=== PATIENT | female | born 1955 | race Caucasian/White ===

== ENCOUNTER 2020-01-13 06:31 | Inpatient (IN) ==
--- NOTE | 2019-12-01 21:04 | PAT Medication Instructions ---
Medication Instructions Date of Service December 01, 2019 Home Medications ascorbic acid (vitamin C) [Vitamin C] 1,000 mg PO DAILY calcium carbonate [Calcium 500] 1,000 mg PO DAILY cholecalciferol (vitamin D3) [Vitamin D3] 125 mcg PO DAILY cranberry 450 mg PO DAILY famotidine 20 mg PO QPM garlic 1,000 mg PO DAILY glucosamine EVb-uua-aydnzcbpow 2 tab PO DAILY latanoprost 1 drp OPB HS melatonin 10 mg PO HS multivitamin 1 tab PO DAILY omeprazole 40 mg PO QAM pramipexole 0.25 mg PO TID sodium chloride [Gladys 128] 1 applic OPB HS sodium chloride [Gladys 128] 1 drp OPB BID STOP taking 2 weeks before surgery (or as soon as possible if surgery is within 2 weeks) cranberry 450 mg PO DAILY garlic 1,000 mg PO DAILY glucosamine FVj-pss-bkhnmmguyy 2 tab PO DAILY STOP taking 24 hours before surgery pramipexole 0.25 mg PO TID DO NOT take the morning of surgery ascorbic acid (vitamin C) [Vitamin C] 1,000 mg PO DAILY calcium carbonate [Calcium 500] 1,000 mg PO DAILY cholecalciferol (vitamin D3) [Vitamin D3] 125 mcg PO DAILY multivitamin 1 tab PO DAILY Take morning of surgery With a small sip of water, OTHERWISE NOTHING TO EAT OR DRINK AFTER MIDNIGHT: omeprazole 40 mg PO QAM sodium chloride [Gladys 128] 1 drp OPB BID Take evening before surgery famotidine 20 mg PO QPM latanoprost 1 drp OPB HS melatonin 10 mg PO HS sodium chloride [Gladys 128] 1 applic OPB HS sodium chloride [Gladys 128] 1 drp OPB BID Other Notes If you have any questions please call us at [phone] or [phone] or [phone] or [phone]
--- NOTE | 2019-12-02 13:20 | Anesthesiology Consultation ---
Date of Service December 02, 2019 Assessment & Plan (1) Encounter for pre-operative examination: - Awaiting review of preop testing (T&S). - Awaiting preop labs (being done at [facility]). Per [facility] assessment on 12/01: Travel screen- Patient lives in [facility] (has only left home for essential shopping, wears mask, uses social distancing). No known COVID-19 positive contacts. No history of COVID-19 testing. No current COVID-19 related symptoms. Chart Review Chart Review: Patient seen in Pre Admission Testing Teaching & Discussion Pre-Anesthesia Teaching/Discussion Notes: Instructed NPO after midnight before surgery,except medications with 15 cc of water. Medication instructions provided according to the [facility] guidelines. History Surgery Operation Date: 01/07/20 07:45 Proposed Procedures p L1-L5 Decompression and Fusion, Spinal Cord Monitoring - Flako Presley DO Height/Weight Height: 5 ft Weight: 74.2 kg Allergies Allergy/AdvReac Type Severity Reaction Status Date / Time gabapentin AdvReac Intermediate VERTIGO, Verified 12/02/19 13:22 DYSPEPSIA cephalexin AdvReac nausea, Verified 12/02/19 14:04 vomiting (when taken with hydrocodone/APAP) hydrocodone/APAP AdvReac nausea, Uncoded 12/02/19 14:04 vomiting (when taken with cephalexin) Medications Home Medications Medication Instructions Recorded Confirmed Last Taken ascorbic acid (vitamin C) [Vitamin 1,000 mg PO DAILY 12/01/19 12/01/19 Unknown C] calcium carbonate [Calcium 500] 1,000 mg PO DAILY 12/01/19 12/01/19 Unknown cholecalciferol (vitamin D3) 125 mcg PO DAILY 12/01/19 12/01/19 Unknown [Vitamin D3] cranberry 450 mg PO DAILY 12/01/19 12/01/19 Unknown famotidine 20 mg PO QPM 12/01/19 12/01/19 Unknown garlic 1,000 mg PO DAILY 12/01/19 12/01/19 Unknown glucosamine BYq-bds-emyhxxwofe 2 tab PO DAILY 12/01/19 12/01/19 Unknown latanoprost 1 drp OPB HS 12/01/19 12/01/19 Unknown melatonin 10 mg PO 12/01/19 12/01/19 Unknown multivitamin 1 tab PO DAILY 12/01/19 12/01/19 Unknown omeprazole 40 mg PO QAM 12/01/19 12/01/19 Unknown pramipexole 0.25 mg PO TID 12/01/19 12/01/19 Unknown sodium chloride [Gladys 128] 1 applic OPB HS 12/01/19 12/01/19 Unknown sodium chloride [Gladys 128] 1 drp OPB BID 12/01/19 12/01/19 Unknown Past Medical History Medical History Degenerative disc disease GERD (gastroesophageal reflux disease) controlled History of recurrent UTIs Increased pressure in the eye Osteoarthritis Restless leg syndrome Scoliosis Spinal stenosis Exercise / Class Metabolic Activity II 4-5 Yardwork/Stairs/Walk up hill Past Family History Family History Mother Family history of diabetes mellitus Past Surgical History Surgical History H/O bilateral oophorectomy History of bilateral tubal ligation History of carpal tunnel release RT History of cataract surgery RT/LEFT History of cholecystectomy History of colonoscopy History of hysterectomy History of tonsillectomy History of tooth extraction History of total knee replacement LEFT Past Anesthesia History No Hx of Anesthesia Complications and No Family Hx of Anesthesia Complications History of PONV No Hx of PONV and Hx of Motion Sickness Social History Smoking Status: Never smoker Do You Dip or Chew Tobacco: No Hx Alcohol Use: Yes alcohol intake frequency: holidays/special occasions only Hx Substance Use: No substance use type: does not use Review of Systems Patient denies chest pain, shortness of breath, dyspnea on exertion, fever, chills, cough, wheezing, palpitations. Physical Exam Vital Signs VITALS BP 133/79 P 77 TEMP 98.9 SP02 98%RA RESP 18 PHYSICAL Full neck and c-spine range of motion. Full TMJ range of motion. TMD 3.5 finger breaths Mallampati Score 3 Dentition: intact, artificial teeth attached with crown/bridge-like on upper front/sides Lungs: clear throughout to auscultation Cardiac: regular rate and rhythm, no murmurs noted Spine: normal Carotid arteries: negative bruit Extremities: no edema Testing Electrocardiogram Date: 12/02/19 NSR at 78bpm. unconfirmed report* Chest X-Ray Date: 12/02/19 Findings: + NAD
--- NOTE | 2019-12-02 14:39 | XRay Report ---
XR chest Pre-admission PA/Lat CLINICAL HISTORY: Preoperative chest COMPARISON STUDY: June 2013 FINDINGS: The cardiac and mediastinal contours are normal. There is no evidence of focal pulmonary co nsolidation. There is no evidence of failure. No pleural effusions are visualized.[ IMPRESSION: No active disease in the chest. ACT 112: Negative or not required by law. Electronically signed by: Ward Grant M.D. 12/02/2019 2:38 PM
--- NOTE | 2019-12-03 06:38 | Electrocardiogram Report ---
Test Reason : Blood Pressure : / mmHG Vent. Rate : 078 BPM Atrial Rate : 078 BPM P-R Int : 194 ms QRS Dur : 084 ms QT Int : 372 ms P-R-T Axes : 078 046 055 degrees QTc Int : 424 ms Normal sinus rhythm Normal ECG When compared with ECG of 23-JUN-2013 13:23, No significant change was found Confirmed by Ang Garcia ([id number]) on 12/03/2019 6:37:52 AM Referred By: Flako Presley Confirmed By:Ang Garcia
[~2020-01-13 06:31] MED LIST: ACETAMINOPHEN 500 MG TAB PO SCH; CEFAZOLIN 1000MG 1,000 MG/7.5 ML SYR IV SCH; CeleBREX 200 MG CAP PO SCH; GABAPENTIN 300 MG CAP PO SCH; GABAPENTIN 600 MG DOSE PO SCH; LR 15ML/HR IV SCH
[2020-01-13 07:11] LABS: Appearance Urine Clear (Clear); Bilirubin Urine Negative (Negative); Blood Urine Negative (Negative); Color Urine Yellow; Glucose Urine UA Negative (Negative); Ketones Urine Negative (Negative); Leukocyte Esterase Urine Negative (Negative); Nitrite Urine Negative (Negative); Protein Urine Negative (Negative); Specific Gravity Urine 1.012 (1.000-1.030); Urobilinogen Urine Negative (Negative); pH Urine 7.5 (4.5-7.5)
[2020-01-13] MEDS ORDERED: PROPOFOL IV EMULSION 10 MG/ML 20 ML VIAL IV ONE (08:30)
[2020-01-13] MEDS ORDERED: LIDOCAINE HCL 2% 2 ML VIAL/AMP(20MG/ML) INFIL ONE (08:30)
[2020-01-13] MEDS ORDERED: ROCURONIUM BROMIDE 10 MG/ML 5 ML VIAL IV ONE (08:30)
[2020-01-13] MEDS ORDERED: MIDAZOLAM HCL 1 MG/ML 2ML VIAL ONE (08:31)
[2020-01-13] MEDS ORDERED: fentaNYL citrate 100 MCG/2 ML VIAL ONE (08:31)
--- NOTE | 2020-01-13 09:32 | History & Physical Bridge Note ---
Date of Service January 13, 2020 History & Physical Bridge Note I have examined the patient, reviewed the History & Physical and in the interval since the performance of the History & Physical I have noted the following changes of clinical significance: no changes noted
--- NOTE | 2020-01-13 09:33 | History & Physical Report ---
Date of Service January 13, 2020 Assessment & Plan (1) Neurogenic claudication due to lumbar spinal stenosis: L1-L5 decompression fusion Present on Admission?: Yes History of Present Illness Chief Complaint: Back and bilateral leg pain Primary Care Provider: Chitra Mcgee This is a 64-year-old female who presents with chronic persistent back and bilateral leg pain. After failing extensive course of nonoperative care is here for surgical invention. Allergies Allergy/AdvReac Type Severity Reaction Status Date / Time gabapentin AdvReac Intermediate VERTIGO, Verified 01/13/20 06:54 DYSPEPSIA cephalexin AdvReac nausea, Verified 01/13/20 06:54 vomiting (when taken with hydrocodone/APAP) hydrocodone/APAP AdvReac nausea, Uncoded 12/02/19 14:04 vomiting (when taken with cephalexin) Home Medications Home Medications Medication Instructions Recorded Confirmed Type ascorbic acid (vitamin C) [Vitamin 1,000 mg PO DAILY 12/01/19 01/13/20 History C] calcium carbonate [Calcium 500] 1,000 mg PO DAILY 12/01/19 01/13/20 History cholecalciferol (vitamin D3) 125 mcg PO DAILY 12/01/19 01/13/20 History [Vitamin D3] cranberry 450 mg PO DAILY 12/01/19 01/13/20 History famotidine 20 mg PO QPM 12/01/19 01/13/20 History garlic 1,000 mg PO DAILY 12/01/19 01/13/20 History glucosamine WBe-vti-vwoyysmpcz 2 tab PO DAILY 12/01/19 01/13/20 History latanoprost 1 drp OPB HS 12/01/19 01/13/20 History melatonin 10 mg PO HS 12/01/19 01/13/20 History multivitamin 1 tab PO DAILY 12/01/19 01/13/20 History omeprazole 40 mg PO QAM 12/01/19 01/13/20 History pramipexole 0.25 mg PO TID 12/01/19 01/13/20 History sodium chloride [Gladys 128] 1 applic OPB HS 12/01/19 01/13/20 History sodium chloride [Gladys 128] 1 drp OPB BID 12/01/19 01/13/20 History diphenhydramine-acetaminophen 2 tab PO HS PRN 01/13/20 01/13/20 History [Tylenol PM Extra Strength] Past Med/Surg History Medical History Degenerative disc disease GERD (gastroesophageal reflux disease) controlled History of recurrent UTIs Increased pressure in the eye Osteoarthritis Restless leg syndrome Scoliosis Spinal stenosis Surgical History H/O bilateral oophorectomy History of bilateral tubal ligation History of carpal tunnel release RT History of cataract surgery RT/LEFT History of cholecystectomy History of colonoscopy History of hysterectomy History of tonsillectomy History of tooth extraction History of total knee replacement LEFT Family History Mother Family history of diabetes mellitus Social History Preferred Language: Latvian Ux Researcher Required: No Beliefs That Will Affect Care: None Current Living Situation: Spouse Feels Safe at Home: Yes Safety Concerns: Feels Safe At This Time Smoking Status: Never smoker Do You Dip or Chew Tobacco: No ; Second Hand Exposure: No ; Tobacco Cessation Education Requested by Patient: No Hx Alcohol Use: Yes Hx Substance Use: No Physical Exam Physical Exam: Patient is alert and oriented neurologically intact. Heart regular rate and rhythm. Lungs clear to auscultation. Results & Data Vital Signs (Past 12 Hours) Vital Signs Temp Pulse Resp BP Pulse Ox 01/13/20 06:58 36.7 C 94 H 18 152/83 H 98
[2020-01-13] MEDS ORDERED: ATROPINE SULFATE 0.1 MG/ML 10ML SYR IV PRN (09:45)
[2020-01-13] MEDS ORDERED: ONDANSETRON INJ 2 MG/ML 2 ML VIAL IV PRN ×3 (09:45→14:43)
[2020-01-13] MEDS ORDERED: HYDROmorphone INJ 2 MG/ML SYR/VIAL IV PRN (09:45)
[2020-01-13] MEDS ORDERED: PROMETHAZINE HCL 12.5 MG in SODIUM CHLORIDE 0.9% 50 ML IV PRN ×3 (09:45→14:43)
[2020-01-13] MEDS ORDERED: ePHEDrine sulfate 50 MG/ML AMP IV PRN (09:45)
[2020-01-13] MEDS ORDERED: fentaNYL citrate 100 MCG/2 ML VIAL IV PRN (09:45)
[2020-01-13] MEDS ORDERED: BACITRACIN INJ 50,000 UNIT VIAL ONE (09:54)
[2020-01-13] MEDS ORDERED: BUPIVACAINE/EPINEPHRINE 0.25% 1:200,000 30 ML VIAL ONE (09:54)
[2020-01-13] MEDS ORDERED: GLYCOPYRROLATE 0.2 MG/ML VIAL ONE (11:08)
[2020-01-13] MEDS ORDERED: ONDANSETRON INJ 2 MG/ML 2 ML VIAL ONE (11:08)
[2020-01-13] MEDS ORDERED: DEXAMETHASONE SOD INJ 4 MG/ML VIAL ONE (11:08)
[2020-01-13] MEDS ORDERED: NEOSTIGMINE METHYLSULFATE 1 MG/ML 10ML VIAL ONE (11:08)
[2020-01-13] MEDS ORDERED: ePHEDrine sulfate 50 MG/ML SYR ONE (11:10)
[2020-01-13] MEDS ORDERED: FLOSEAL HEMOSTATIC MATRIX 10ML TOP ONE (12:49)
--- NOTE | 2020-01-13 12:55 | Operative Report ---
Post Operative Report Pre & Post Diagnosis Operation Date: 01/13/20 09:35 Pre-Op Diagnosis: Lumbar Spinal Stenosis with Neurogenic Claudication Post-Op Diagnosis: Lumbar Spinal Stenosis with Neurogenic Claudication I identified the patient and participated in the time-out.: Yes Procedure Operation Date: 01/13/20 09:35 Actual Procedures #1 lumbar decompression with bilateral medial facetectomies and foraminotomies L1-2, L2-3, L3-4 and L4-5. #2 posterior spinal fusion L1-L5. #3 placement posterior segmental instrumentation L1-L5. #4 interbody fusion L4-5. #5 placement peek cage 11 x 22 mm at L4-5. #6 placement of locally harvested morselized autograft in the posterior lateral gutters. #7 placement infuse collagen sponge, master graft in the posterior lateral gutters and ostial amp interbody space. Surgeon Flako Presley DO Activity Aid Nellie Weiner Estimated Blood Loss 150 Findings Consistent with Post-Op Diagnosis Specimens None Indications This is a 64-year-old female who presents with above-mentioned diagnosis after failing a course of nonoperative care is here for surgical invention. Description of Procedure The patient was met with identified informed consent obtained. Patient was then taken to the operative suite underwent intubation placed in a prone position on the Dwain table on top of the Raúl frame. All bony prominences well-padded eyes inspected to ensure no external pressure placed upon up at this point the lumbar spine was prepped and draped in normal sterile fashion. Sharp dissection with the assistance of Bovie cautery was performed down to and exposing the lamina and transverse processes of L1-L2 L3-L4-L5 bilaterally with assistance of fluoroscopy. From a caudal to cephalad fashion complete laminectomy of L4 L3 L2 L1 was performed including bilateral medial facetectomies and foraminotomies addressing severe spinal stenosis. Pedicle screws were then placed in L1-L2 L3-L4-L5 bilaterally with assistance of fluoroscopy and the appropriately sized jones placed. Believe a transforaminal approach and left complete discectomy of L4-5 was performed endplates curetted to subcortical bleeding bone and a 11 x 22 mm peek cage with osteo-bone graft tapped in position. The rods were then locked in final position bilaterally. The transverse processes of L2 L3-L4-L5 were then burred to subcortical bleeding bone. Infuse collagen sponge master graft local autograft was placed in the posterior lateral gutters. 15 round HUGO drain inserted. Incision was then closed with 1 Vicryl in the fascia 2-0 Vicryl subcutaneously and 4 Monocryl for final skin closure. Steri-Strip sterile dressings placed. Patient waken taken to PACU stable condition. Please note spinal cord monitoring was utilized that the procedure no changes noted. Lastly Nellie Weiner was present at the entire procedure involved the patient positioning complex portions of the surgery and final skin closure. I attest to the content of the Intraoperative Record and any orders documented therein. Any exceptions are noted below.
[2020-01-13] MEDS ORDERED: LORazepam 0.5 MG TAB PO PRN ×2 (12:59→14:43)
[2020-01-13] MEDS ORDERED: METOCLOPRAMIDE HCL INJ 5 MG/ML 2 ML VIAL IV PRN ×2 (12:59→14:43)
[2020-01-13] MEDS ORDERED: DO NOT ADMINISTER PNEUMOCOCCAL VACCINE PRN ×2 (12:59→14:43)
[2020-01-13] MEDS ORDERED: MAGNESIUM HYDROXIDE SUSP 30 ML UDC PO PRN ×2 (12:59→14:43)
[2020-01-13] MEDS ORDERED: bisacodyL 10 MG SUPP PR PRN ×2 (12:59→14:43)
[2020-01-13] MEDS ORDERED: LORazepam 0.5 MG/1 ML VIAL IV PRN ×2 (12:59→14:43)
[2020-01-13] MEDS ORDERED: DO NOT ADMINISTER FLU VACCINE PRN ×2 (12:59→14:43)
[2020-01-13] MEDS ORDERED: FAMOTIDINE 20 MG TAB PO PRN ×2 (12:59→14:43)
[2020-01-13] MEDS ORDERED: ONDANSETRON 4 MG OD TAB PO PRN ×2 (12:59→14:43)
[2020-01-13] MEDS ORDERED: ALUMINUM/MAGNESIUM SUSP 30 ML UDC PO PRN ×2 (12:59→14:43)
[2020-01-13] MEDS ORDERED: NALOXONE HCL 0.4 MG/1 ML VIAL/CARP IV PRN ×2 (12:59→14:43)
[2020-01-13] MEDS ORDERED: SOD PHOSPHATE/SOD BIPHOSPHATE ENEMA 132 ML BTL PR PRN ×2 (12:59→14:43)
--- NOTE | 2020-01-13 13:06 | Fluoroscopy Report ---
INTRAOPERATIVE RADIOGRAPHS CLINICAL HISTORY: L1-L5 spinal fusion. Fluoroscopy time: 29 seconds. FINDINGS: 3 spot fluoroscopic views of the lumbar spine are presented. There has been discectomy at L 3-L4 with laminectomy and posterior fusion from L1-L5 . Interpedicular screws are present at all leve ls. The Orthopedic hardware appears intact. IMPRESSION: Intraoperative images from L1-L5 spinal fusion as above. Electronically signed by: Dionicio Mccoy M.D. 01/13/2020 1:05 PM
--- NOTE | 2020-01-13 14:25 | Anesthesiology Progress Note ---
Date of Service January 13, 2020 Anesthesia Post Procedure Vital Signs Vital Signs: Temp Pulse Pulse Resp BP BP Pulse Ox 01/13/20 14:10 36.3 C L 95 H 12 135/64 99 01/13/20 14:00 96 H 12 139/63 98 01/13/20 13:50 93 H 12 148/66 H 95 01/13/20 13:43 36.1 C L 100 H 12 135/86 99 01/13/20 06:58 36.7 C 94 H 18 152/83 H 98 Pain Intensity Left Leg: Pain Intensity: 2 Transfer of Care Handoff Completed per policy Notes Mental Status: alert / awake / arousable and participated in evaluation Patient Amnestic to Procedure: Yes Nausea / Vomiting: adequately controlled Pain: adequately controlled Airway Patency, RR, SpO2: stable & adequate BP & HR: stable & adequate Hydration State: stable & adequate Anesthetic Complications: no major complications apparent and Pt Satisfied with anesthetic care
[2020-01-13] MEDS ORDERED: ACETAMINOPHEN 500 MG TAB PO PRN ×2 (14:43→15:04)
[2020-01-13] MEDS ORDERED: ACETAMINOPHEN 1,000 MG/100 ML VIAL IV PRN (14:43)
[2020-01-13] MEDS ORDERED: HYDROmorphone INJ 0.5 MG/0.5 ML SYR IV PRN (14:43)
[2020-01-13] MEDS ORDERED: HYDROmorphone INJ 1 MG/ML SYRINGE IV PRN (14:43)
[2020-01-13] MEDS: LACTATED RINGER'S 1,000 ML IV SCH (15:11)
[2020-01-13] MEDS: PRAMIPEXOLE DIHYDROCHLO 0.25 MG TAB PO SCH ×2 (15:51→20:14)
[2020-01-13] MEDS: CLINDAMYCIN 600 MG in DEXTROSE 5% 50 ML IV SCH (17:34)
--- NOTE | 2020-01-13 17:58 | Internal Medicine Consult Note ---
Date of Consultation January 13, 2020 Assessment & Plan (1) Neurogenic claudication due to lumbar spinal stenosis: POD # 0. (2) GERD (gastroesophageal reflux disease): Continue Protonix and Pepcid. (3) Restless leg syndrome: Continue Mirapex. (4) History of recurrent UTIs: Last UTI 1-2 months ago. No current symptoms. UA negative. Remove Garcia as soon as possible. (5) DVT prophylaxis: Per [facility] protocol. (6) Encounter for consultation: Thank you for this consultation. We will follow the patient with you during their hospital stay. My cell # is [phone]. You can reach a member of the [facility] Medicine Team 27/01 via pager @ [phone]. History of Present Illness Reason for Consultation: medical management Requesting Physician: Dr. Presley Attending Physician: Flako Presley DO History of Present Illness 64 YO female followed by Dr. Mcgee. History of GERD, restless legs, and other problems noted below. Underwent lumbar decompression / fusion today. Doing well postoperatively. No chest pain, cough, SOB, nausea, vomiting. Has Garcia cath postop. Pain well-controlled. Allergies Allergy/AdvReac Type Severity Reaction Status Date / Time gabapentin AdvReac Intermediate VERTIGO, Verified 01/13/20 06:54 DYSPEPSIA cephalexin AdvReac nausea, Verified 01/13/20 06:54 vomiting (when taken with hydrocodone/APAP) hydrocodone/APAP AdvReac nausea, Uncoded 12/02/19 14:04 vomiting (when taken with cephalexin) Home Medications Home Medications Medication Instructions Recorded Confirmed Type ascorbic acid (vitamin C) [Vitamin 1,000 mg PO DAILY 12/01/19 01/13/20 History C] calcium carbonate [Calcium 500] 1,000 mg PO DAILY 12/01/19 01/13/20 History cholecalciferol (vitamin D3) 125 mcg PO DAILY 12/01/19 01/13/20 History [Vitamin D3] cranberry 450 mg PO DAILY 12/01/19 01/13/20 History famotidine 20 mg PO QPM 12/01/19 01/13/20 History garlic 1,000 mg PO DAILY 12/01/19 01/13/20 History glucosamine WOr-hri-kvqukpkbks 2 tab PO DAILY 12/01/19 01/13/20 History latanoprost 1 drp OPB HS 12/01/19 01/13/20 History melatonin 10 mg PO HS 12/01/19 01/13/20 History multivitamin 1 tab PO DAILY 12/01/19 01/13/20 History omeprazole 40 mg PO QAM 12/01/19 01/13/20 History pramipexole 0.25 mg PO TID 12/01/19 01/13/20 History sodium chloride [Gladys 128] 1 applic OPB HS 12/01/19 01/13/20 History sodium chloride [Gladys 128] 1 drp OPB BID 12/01/19 01/13/20 History diphenhydramine-acetaminophen 2 tab PO HS PRN 01/13/20 01/13/20 History [Tylenol PM Extra Strength] Patient History Medical History Degenerative disc disease GERD (gastroesophageal reflux disease) controlled History of recurrent UTIs Increased pressure in the eye Osteoarthritis Restless leg syndrome Scoliosis Spinal stenosis Surgical History H/O bilateral oophorectomy History of bilateral tubal ligation History of carpal tunnel release RT History of cataract surgery RT/LEFT History of cholecystectomy History of colonoscopy History of hysterectomy History of tonsillectomy History of tooth extraction History of total knee replacement LEFT Family History (Updated 01/13/20 @ 17:50 by Goldy Miguel MD) Mother Family history of diabetes mellitus Heart disease Brother Diabetes Social History Preferred Language: Slovenian Senior Staff Psychologist Required: No Beliefs That Will Affect Care: None Current Living Situation: Spouse Feels Safe at Home: Yes Safety Concerns: Feels Safe At This Time Smoking Status: Never smoker Do You Dip or Chew Tobacco: No ; Second Hand Exposure: No ; Tobacco Cessation Education Requested by Patient: No Hx Alcohol Use: Yes Hx Substance Use: No Review of Systems Constitutional: + weight loss (intentional 10 lb wt loss); no fever Respiratory: no cough and no dyspnea Cardiovascular: no chest pain Gastrointestinal: no nausea, no vomiting, no diarrhea/loose stools, no blood in stools and no melena Genitourinary: recurrent UTI's, no recent symptoms Musculoskeletal: + back pain Hematologic / Lymphatic: no easy bleeding and no easy bruising Physical Exam Constitutional: WD/WN, vitals as above no acute distress Eyes: PERRL, conjunctivae normal, anicteric sclerae ENMT: external ear and nose normal, oropharynx normal Neck: trachea midline, no thyromegaly Respiratory: normal respiratory effort, lungs clear to auscultation Cardiovascular: Rate/Rhythm: regular rate Heart Sounds: + murmur (soft sys murmur at base); no gallop and no cardiac rub Vessels: no JVD Extremities: normal capillary refill; no calf tenderness and no edema Gastrointestinal (Abdomen): normal bowel sounds, soft, nontender, no hepatosplenomegaly Musculoskeletal: Head/Neck/Chest: neck supple Extremities: strength 5/5 throughout; no cyanosis and no clubbing TEDS and SCD's applied Skin: no rashes, warm and dry Neurologic: PERRL, EOMI no facial palsy no dysarthria or aphasia Psychiatric: Orientation: alert and oriented x 3 Affect: euthymic affect Genitourinary: + bladder abnormality (Garcia cath) Lymphatic: no cervical lymphadenopathy Results & Data Vital Signs (Past 12 Hours) Vital Signs Temp Pulse Pulse Resp BP BP Pulse Ox 01/13/20 17:32 36.8 C 96 H 16 147/76 H 98 01/13/20 16:32 36.6 C 99 H 16 159/73 H 100 01/13/20 15:39 36.7 C 103 H 16 122/70 100 01/13/20 15:14 36.6 C 84 16 129/72 98 01/13/20 14:35 36.6 C 90 14 139/73 100 01/13/20 14:10 36.3 C L 95 H 12 135/64 99 01/13/20 14:00 96 H 12 139/63 98 01/13/20 13:50 93 H 12 148/66 H 95 01/13/20 13:43 36.1 C L 100 H 12 135/86 99 01/13/20 06:58 36.7 C 94 H 18 152/83 H 98 Laboratory Results Laboratory Results - last 24 hr 01/13/20 01/13/20 06:58 07:26 Urine Color Yellow Urine Appearance Clear Urine pH 7.5 Ur Specific [place] 1.012 Urine Protein Negative Urine Glucose (UA) Negative Urine Ketones Negative Urine Blood Negative Urine Nitrite Negative Urine Bilirubin Negative Urine Urobilinogen Negative Ur Leukocyte Esterase Negative Blood Type A Positive Antibody Screen NEGATIVE Crossmatch See Detail COVID-19 PCR negative 01/03/20 Preop labs 12/05/19: Hgb 12.9, WBC 4700, plts 271,000. Na 142, K 5.2, Cl 103, CO2 23, BUN 14, creat 0.89, glucose 129. Diagnostic Findings Chest x-ray 12/02/19 negative. ECG Additional Comments: EKG performed on 12/02/19 reviewed and demonstrated NSR at 80 / min, no acute changes.
[2020-01-13] MEDS: MELATONIN 3 MG TAB PO SCH (20:13)
[2020-01-13] MEDS: FAMOTIDINE 20 MG TAB PO SCH (20:14)
[2020-01-13] MEDS: DOCUSATE SODIUM/SENNA 50/8.6MG TAB PO SCH (20:14)
[2020-01-13] MEDS: LATANOPROST 0.005% OP SOLN 2.5 ML BTL OPB SCH (20:16)
[2020-01-13] MEDS: SODIUM CHLORIDE 5% OP SOLN 15 ML BTL OPB SCH (20:46)
[2020-01-13] MEDS ORDERED: DOCUSATE SODIUM/SENNA 50/8.6MG TAB PO SCH (21:00)
[2020-01-13] MEDS: SODIUM CHLORIDE 5% (MURO) OP OINT 3.5 GM TUBE OPB SCH (22:11)
[2020-01-14] MEDS: CLINDAMYCIN 600 MG in DEXTROSE 5% 50 ML IV SCH (01:07)
[2020-01-14] MEDS: LACTATED RINGER'S 1,000 ML IV SCH (01:10)
[2020-01-14] MEDS: TRAMADOL HCL 50 MG TABLET PO PRN ×4 (04:19→21:27)
[2020-01-14] MEDS: POLYETHYLENE (MIRALAX) 17 GM PACK PO SCH ×3 (04:20→17:20)
[2020-01-14] MEDS ORDERED: POLYETHYLENE (MIRALAX) 17 GM PACK PO SCH (06:00)
[2020-01-14 06:25] LABS: Basophils # (auto) 0.01 K/uL (0-0.2); Basophils % (auto) 0.1 %; Eosinophils # (auto) 0.01 K/uL (0-0.5); Eosinophils % (auto) 0.1 %; Hematocrit (blood only) 29.4 % (37-47); Hemoglobin 9.9 g/dL (12.0-16.0); Immature Granulocytes # (auto) 0.02 K/uL (0.00-0.02); Immature Granulocytes % (auto) 0.2 %; Lymphocytes # (auto) 1.67 K/uL (1.2-3.4); Lymphocytes % (auto) 17.3 %; Mean Corpuscular Hemoglobin 29.4 pg (25-34); Mean Corpuscular Hgb Conc 33.7 g/dL (32-36); Mean Corpuscular Volume 87.2 fL (80-100); Mean Platelet Volume 9.9 fL (7.4-10.4); Monocytes # (auto) 0.75 K/uL (0.11-0.59); Monocytes % (auto) 7.8 %; Neutrophils # (auto) 7.17 K/uL (1.4-6.5); Neutrophils % (auto) 74.5 %; Platelet Count 244 K/uL (130-400); RDW Coefficient of Variation 13.3 % (11.5-14.5); RDW Standard Deviation 42.9 fL (36.4-46.3); Red Blood Count 3.37 M/uL (4.2-5.4); White Blood Count 9.63 K/uL (4.8-10.8)
[2020-01-14 06:51] LABS: BUN Creatinine Ratio 15.4 (10-20); Calcium 8.3 mg/dl (8.5-10.1); Est GFR (African American) 108.4; Est GFR (Non-African American) 93.5; Potassium 4.2 mmol/L (3.5-5.1)
--- NOTE | 2020-01-14 07:41 | Anesthesiology Progress Note ---
Date of Service January 14, 2020 Anesthesia Post Procedure Vital Signs Vital Signs: Temp Pulse Pulse Resp BP Pulse Ox 01/14/20 04:09 36.7 C 102 H 16 108/63 98 01/13/20 23:42 36.6 C 94 H 20 119/71 96 01/13/20 22:19 97 01/13/20 19:01 36.7 C 94 H 16 136/75 98 01/13/20 17:32 36.8 C 96 H 16 147/76 H 98 01/13/20 16:32 36.6 C 99 H 16 159/73 H 100 01/13/20 15:39 36.7 C 103 H 16 122/70 100 01/13/20 15:14 36.6 C 84 16 129/72 98 01/13/20 14:35 36.6 C 90 14 139/73 100 01/13/20 14:10 36.3 C L 95 H 12 135/64 99 01/13/20 14:00 96 H 12 139/63 98 01/13/20 13:50 93 H 12 148/66 H 95 01/13/20 13:43 36.1 C L 100 H 12 135/86 99 Pain Intensity Left Leg: Pain Intensity: 6 Notes Mental Status: alert / awake / arousable and participated in evaluation Patient Amnestic to Procedure: Yes Nausea / Vomiting: adequately controlled Pain: adequately controlled Airway Patency, RR, SpO2: stable & adequate BP & HR: stable & adequate Hydration State: stable & adequate Anesthetic Complications: no major complications apparent
[2020-01-14] MEDS: SODIUM CHLORIDE 5% OP SOLN 15 ML BTL OPB SCH ×2 (07:56→20:59)
[2020-01-14] MEDS: PANTOprazole 40 MG TAB PO SCH (07:56)
[2020-01-14] MEDS: PRAMIPEXOLE DIHYDROCHLO 0.25 MG TAB PO SCH ×3 (07:57→20:25)
[2020-01-14] MEDS: MULTIVITAMIN TAB PO SCH (07:57)
[2020-01-14] MEDS: ASCORBIC ACID 500 MG TAB PO SCH (07:57)
[2020-01-14] MEDS: OXYCODONE HCL IR 5 MG TAB (IMMEDIATE RELEASE) PO PRN (08:07)
--- NOTE | 2020-01-14 08:38 | Orthopedic Progress Note ---
Date of Service January 14, 2020 Assessment & Plan (1) Neurogenic claudication due to lumbar spinal stenosis: Patient stable postop day 1. She is going to be up moving with physical therapy. We will continue with pain control and DVT GI prophylaxis. We can advance her diet as tolerated as well. We will see how she is doing over the next several days and likely be discharged home. Admission and Anticipated Discharge Date Admission Date: January 13, 2020 Subjective Patient was seen bedside postoperative day #1 status post lumbar decompression and fusion from L1-L5. States that she is doing well as long as she does not move. When she went she has some discomfort. She denies any have any pain medication throughout the night. She is not having any leg pain at this point but still has some numbness. Overall she feels that she is progressing nicely. She was up to chair last night and did tolerate this well she denies any other numbness, tingling, or paresthesias. Physical Exam Physical Exam: On exam she is alert and oriented. Her abdomen soft and nontender. Her strength and sensation are grossly intact her dressings clean dry and intact HUGO drain is holding suction and is placed out 25 cc on the left shift. Results & Data ([facility]) Vital Signs (Past 12 Hours) Vital Signs Temp Pulse Pulse Resp BP Pulse Ox 01/14/20 07:39 36.7 C 96 H 17 119/70 98 01/14/20 04:09 36.7 C 102 H 16 108/63 98 01/13/20 23:42 36.6 C 94 H 20 119/71 96 01/13/20 22:19 97
[2020-01-14] MEDS ORDERED: LACTATED RINGER'S 250 ML IV ONE (12:13)
[2020-01-14] MEDS ORDERED: LACTATED RINGER'S 1,000 ML IV SCH (13:30)
--- NOTE | 2020-01-14 15:11 | Hospitalist Progress Note ---
Date of Service January 14, 2020 Assessment & Plan (1) Neurogenic claudication due to lumbar spinal stenosis: POD # 1 Continue physical therapy occupational therapy as per orthopedics Dizzy spell/hypotensive episode: Possible vasovagal response, postoperatively due to the anesthetics, volume depletion, pain medications Patient given IV fluid bolus, Repeat vitals improved, with resolution of symptoms Continue to monitor orthostatic vitals . H&H remained stable (2) GERD (gastroesophageal reflux disease): Continue Protonix and Pepcid. (3) Restless leg syndrome: Continue Mirapex. (4) History of recurrent UTIs: Last UTI 1-2 months ago. No current symptoms. UA negative. Garcia discontinued (5) DVT prophylaxis: Per Ortho Spine protocol. (6) Encounter for consultation: Thank you for this consultation. We will follow the patient with you during their hospital stay. You can reach a member of the [facility] Medicine Team 27/01 via pager @ [phone]. Admission and Anticipated Discharge Date Admission Date: January 13, 2020 Subjective Patient felt dizzy and lightheaded earlier morning got physical therapy, was hypotensive Symptom resolved after taking rest Given IV fluid bolus, Reevaluated at bedside, Feels much better, denies of any chest pain shortness of breath no dizzy spell or lightheadedness Review of Systems Review of Systems: All systems reviewed & are unremarkable except as noted in HPI & below Physical Exam Constitutional: WD/WN, vitals as above Eyes: PERRL, conjunctivae normal, anicteric sclerae ENMT: external ear and nose normal, oropharynx normal Neck: trachea midline, no thyromegaly Respiratory: normal respiratory effort, lungs clear to auscultation Cardiovascular: RRR, no murmur, no edema Gastrointestinal (Abdomen): normal bowel sounds, soft, nontender, no hepatosplenomegaly Musculoskeletal: no cyanosis or clubbing, extremities motor strength 5/5 Skin: no rashes, warm and dry Neurologic: PERRL, EOMI, accommodation nl, no face palsy, no dysarthria Psychiatric: A+Ox3, euthymic affect Results & Data Results & Data ([facility]) Vital Signs (Past 12 Hours) Vital Signs Temp Pulse Pulse Resp BP Pulse Ox 01/14/20 15:03 36.9 C 92 H 16 112/68 98 01/14/20 11:09 36.6 C 81 16 109/67 98 01/14/20 10:54 91 H 102/63 01/14/20 07:39 36.7 C 96 H 17 119/70 98 01/14/20 04:09 36.7 C 102 H 16 108/63 98
[2020-01-14] MEDS: MELATONIN 3 MG TAB PO SCH (20:24)
[2020-01-14] MEDS: LATANOPROST 0.005% OP SOLN 2.5 ML BTL OPB SCH (20:25)
[2020-01-14] MEDS: FAMOTIDINE 20 MG TAB PO SCH (20:26)
[2020-01-14] MEDS: DOCUSATE SODIUM/SENNA 50/8.6MG TAB PO SCH (20:26)
[2020-01-14] MEDS: SODIUM CHLORIDE 5% (MURO) OP OINT 3.5 GM TUBE OPB SCH (21:28)
[2020-01-15] MEDS: POLYETHYLENE (MIRALAX) 17 GM PACK PO SCH ×3 (00:44→12:47)
[2020-01-15] MEDS: OXYCODONE HCL IR 5 MG TAB (IMMEDIATE RELEASE) PO PRN ×3 (00:53→22:23)
[2020-01-15] MEDS: ASCORBIC ACID 500 MG TAB PO SCH (09:09)
[2020-01-15] MEDS: MULTIVITAMIN TAB PO SCH (09:09)
[2020-01-15] MEDS: SODIUM CHLORIDE 5% OP SOLN 15 ML BTL OPB SCH ×2 (09:10→22:00)
[2020-01-15] MEDS: PANTOprazole 40 MG TAB PO SCH (09:10)
[2020-01-15] MEDS: PRAMIPEXOLE DIHYDROCHLO 0.25 MG TAB PO SCH ×3 (09:10→21:54)
--- NOTE | 2020-01-15 09:43 | Orthopedic Progress Note ---
Date of Service January 15, 2020 Assessment & Plan (1) Neurogenic claudication due to lumbar spinal stenosis: This time we will continue physical therapy monitor HUGO output anticipate discharge home tomorrow. Present on Admission?: Yes Admission and Anticipated Discharge Date Admission Date: January 13, 2020 Subjective Back pain controlled leg pain improved Physical Exam Physical Exam: On exam she is good strength testing is sitting the chair at the bedside. Results & Data ([facility]) Vital Signs (Past 12 Hours) Vital Signs Temp Pulse Resp BP Pulse Ox 01/15/20 06:14 36.9 C 102 H 18 116/66 94 01/15/20 01:48 103 H 01/14/20 23:16 37.2 C 102 H 20 112/69 96
[2020-01-15] MEDS: DEXAMETHASONE SOD PHOSPHATE 8 MG in SYRINGE 0 ML IV SCH (11:33)
--- NOTE | 2020-01-15 17:14 | Hospitalist Progress Note ---
Date of Service January 15, 2020 Assessment & Plan (1) Neurogenic claudication due to lumbar spinal stenosis: POD #2 Recovering well Continue physical therapy occupational therapy as per orthopedics Dizzy spell/hypotensive episode: No further episode in the last 24 hours, Stable, IV fluid discontinued Had transient dizzy spell yesterday while standing up Possible vasovagal response, postoperatively due to the anesthetics, volume depletion, pain medications Patient given IV fluid bolus, Repeat vitals improved, with resolution of symptoms Continue to monitor orthostatic vitals . H&H remained stable (2) GERD (gastroesophageal reflux disease): Continue Protonix and Pepcid. (3) Restless leg syndrome: Continue Mirapex. (4) History of recurrent UTIs: Last UTI 1-2 months ago. No current symptoms. UA negative. Garcia discontinued (5) DVT prophylaxis: Per Ortho Spine protocol. (6) Encounter for consultation: Thank you for this consultation. We will follow the patient with you during their hospital stay. You can reach a member of the [facility] Medicine Team 27/01 via pager @ [phone]. Admission and Anticipated Discharge Date Admission Date: January 13, 2020 Subjective No episode of dizzy spell or lightheadedness Doing well in PT OT No orthostatic change in vitals No shortness of breath chest pain , STALLWORTH or cough Review of Systems Review of Systems: All systems reviewed & are unremarkable except as noted in HPI & below Physical Exam Constitutional: WD/WN, vitals as above Eyes: PERRL, conjunctivae normal, anicteric sclerae ENMT: external ear and nose normal, oropharynx normal Neck: trachea midline, no thyromegaly Respiratory: normal respiratory effort, lungs clear to auscultation Cardiovascular: RRR, no murmur, no edema Gastrointestinal (Abdomen): normal bowel sounds, soft, nontender, no hepatosplenomegaly Musculoskeletal: no cyanosis or clubbing, extremities motor strength 5/5 Skin: no rashes, warm and dry Neurologic: PERRL, EOMI, accommodation nl, no face palsy, no dysarthria Psychiatric: A+Ox3, euthymic affect Results & Data Results & Data ([facility]) Vital Signs (Past 12 Hours) Vital Signs Temp Pulse Pulse Resp BP Pulse Ox 01/15/20 14:38 37.5 C 100 H 16 138/79 96 01/15/20 06:14 36.9 C 102 H 18 116/66 94
[2020-01-15] MEDS: MELATONIN 3 MG TAB PO SCH (21:55)
[2020-01-15] MEDS: DOCUSATE SODIUM/SENNA 50/8.6MG TAB PO SCH (21:55)
[2020-01-15] MEDS: LATANOPROST 0.005% OP SOLN 2.5 ML BTL OPB SCH (21:57)
[2020-01-15] MEDS: SODIUM CHLORIDE 5% (MURO) OP OINT 3.5 GM TUBE OPB SCH (21:58)
[2020-01-15] MEDS: FAMOTIDINE 20 MG TAB PO SCH (22:00)
[2020-01-16] MEDS: SODIUM CHLORIDE 5% OP SOLN 15 ML BTL OPB SCH (09:35)
[2020-01-16] MEDS: PANTOprazole 40 MG TAB PO SCH (09:37)
[2020-01-16] MEDS: PRAMIPEXOLE DIHYDROCHLO 0.25 MG TAB PO SCH (09:37)
[2020-01-16] MEDS: DEXAMETHASONE SOD PHOSPHATE 8 MG in SYRINGE 0 ML IV SCH (09:37)
[2020-01-16] MEDS: MULTIVITAMIN TAB PO SCH (09:37)
[2020-01-16] MEDS: ASCORBIC ACID 500 MG TAB PO SCH (09:37)
--- NOTE | 2020-01-16 10:58 | Discharge Summary ---
Date of Service January 16, 2020 Admission HPI Per Admitting Provider This is a 64-year-old female who presents with chronic persistent back and bilateral leg pain. After failing extensive course of nonoperative care is here for surgical invention. Principal Diagnosis Lumbar spinal stenosis with neurogenic claudication Discharge Data Allergies Allergy/AdvReac Type Severity Reaction Status Date / Time gabapentin AdvReac Intermediate VERTIGO, Verified 01/13/20 06:54 DYSPEPSIA cephalexin AdvReac nausea, Verified 01/13/20 06:54 vomiting (when taken with hydrocodone/APAP) hydrocodone/APAP AdvReac nausea, Uncoded 12/02/19 14:04 vomiting (when taken with cephalexin) Consultations 01/13/20 12:59 Consult Case Management - Discharge Planning Routine 01/13/20 14:43 Consult Case Management - Discharge Planning Routine Consult Hospitalist Routine Procedures Performed Operation Date: 01/13/20 09:35 Actual Procedures p L1-L5 Decompression and Fusion with Interbody Cage at L3-4, Spinal Cord Monitoring(Not Applicable) - Flako Presley DO Ordered Studies 01/13/20 09:35 FL fluoroscopy <1hr Routine FL lumbar spine 2-3V Routine Hospital Course (1) Neurogenic claudication due to lumbar spinal stenosis: Patient underwent multilevel lumbar decompression fusion tolerated this well was taken to the orthopedic floor possibly. Postop day 1 she was up ambulating progressed to postop day #2 on postop day #3 HUGO drain decreased probably. Bowels working well. Excellent strength testing. Subsequently discharged home. Discharge orders and instructions from the chart for further review. Total Time Total Time Spent Total Time Spent (In Minutes): 20 minutes Discharge Plan Discharge Items Patient Disposition: Home - Self-Care Reason For Visit: LUMBAR SPINAL STENOSIS W NEUROGENIC CLAUDICATION Discharge Diagnosis: Lumbar spinal stenosis with neurogenic claudication Activity: As commented below Non-emergency contact: Primary Care Provider Call non-emergency contact if: you have any medication questions Follow-up/Referrals: Chitra Mcgee M.D. [Primary Care Provider] - Diet: Regular Addtl Attending Provider Instructions: ACTIVITY RECOMMENDATIONS: SELF CARE INSTRUCTIONS AFTER THORACIC/LUMBAR FUSIONS 1. You may walk to your tolerance. It is good exercise for your legs and back. Expect some back and intermittent leg aches and pains. 2. You may perform "counter-top" level activities (make a sandwich, amado with a project, etc.). 3. No bending or lifting of more than 10 pounds or back twisting of any nature (roll like a log when turning in bed). 4. You may ride in a car for 20-30 minutes at a time. No driving until after your first visit with your doctor. 5. Frequent changes of position and restricting sitting to 30 minutes at a time will help limit the amount of back spasms and stiffness you may experience. 6. You may discontinue the use of ambulatory aids (cane, crutches, etc.) once your strength and confidence allow. 7. You may learning manager the shower and let water strike your incision when you arrive home at least once daily. Do not take a tub bath, sit in a hot tub or go into a swimming pool until after your first recheck in the office. SPECIAL CARE INSTRUCTIONS: VERY IMPORTANT TO READ AND REVIEW A. Your surgical incision has been closed with a cosmetic suture under the skin that will dissolve in about 6 weeks. In 14 days, you can use a pair of clean scissors and cut the suture that is left outside of the skin at the ends of your incision. 1. The small skin tapes can be removed 7 days after surgery if they have not fallen off by that point. 2. You may keep the wound open to air as much as possible to promote healing after post-op day number 5 unless told otherwise by your doctor. 3. If you think the wound looks like it is becoming infected (redness or worsening drainage) and/or you are experiencing fever, chill or worsening back pain and muscle spasms, contact the office so that we may evaluate you as soon as possible. B. Complications are uncommon, but please contact us if you have any signs or symptoms of: 1. wound infection (fever higher than 102.5 degrees F, redness, separation of wound, drainage, or increasing pain from the incision) 2. blood clots in legs (pain, swelling, redness and warmth in legs) 3. urinary tract infection (fever higher than 102.5 degrees F, burning upon urination or increased frequency of urination) 4. nerve problems (inability to walk on your toes or heels, numbness, loss of bowel or bladder control) 5. any other symptoms that concern you C. Please call the office at if you have any concerns or questions about your operation or recovery. D. No smoking! Smoking drastically decreases the chance of a solid fusion. E. Do not take any anti-inflammatory medications (Indocin, Advil, Motrin, Aspirin, Naprosyn, etc.) as these may inhibit the chance of a solid fusion. Tylenol is okay to take for pain. MANAGING PAIN AFTER SPINAL SURGERY 1. Narcotic medication is intended for short-term use and will be provided for surgical pain. Surgical pain usually lasts for a period of 4-6 weeks. Narcotic medication includes Percocet, Vicodin, Darvocet, Tylenol #3 or Lortab. 2. Longer-term pain is more appropriately treated with non-narcotic medication such as Tylenol ES. 3. Muscle spasm is not appropriately treated with narcotics. Muscle relaxers such as Soma, Flexeril or Skelaxin can be used along with Tylenol ES. 4. Remember that we all live with some "aches and pains". This is not unusual or uncommon after an injury or as we get older. a. Back pain is expected and may include muscle spasms for 4 to 6 weeks after surgery. The pain should gradually improve. If the pain worsens for no apparent reason, please contact the office. b. Intermittent leg pain may also be experienced and should not be concerned about unless it worsens for no apparent reason. If so, please contact the office. 5. We will provide appropriate medication within the normal guidelines of their prescribed use. We will also be very cautious and aware of potential abuse and extended duration of patients' medication needs. a. Pain medications are for your comfort and to assist with sleep and rest so that the tissue can heal. They are not provided in order to return to normal activity and should not be used through the day. To do so or worsening pain at night can result from ongoing tissue damage and development of tolerance to the prescribed medicine. 6. Please allow 2-3 days to process refills. Prescriptions will not be mailed but must be picked up at the office. FOLLOW UP VISIT: Keep your scheduled follow-up appointment. Any questions, please call the office at . Pending Studies at Discharge: No Stand-Alone Forms: [employer], Smoking Cessation Medications and [facility] Order Prescriptions: New oxycodone 5 mg tablet 5 mg PO Q6H PRN (Reason: pain, severe) Qty: 20 RF: 0 tramadol 50 mg tablet 50 mg PO Q6H PRN (Reason: pain, moderate) Qty: 20 RF: 0 Continued sodium chloride [Gladys 128] 5 % Drops 1 drp OPB BID RF: 0 latanoprost 0.005 % Drops 1 drp OPB HS RF: 0 omeprazole 40 mg Capsule,Delayed Release(Dr/Ec) 40 mg PO QAM RF: 0 sodium chloride [Gladys 128] 5 % Ointment 1 applic OPB HS RF: 0 famotidine 20 mg Tablet 20 mg PO QPM RF: 0 pramipexole 0.25 mg Tablet 0.25 mg PO TID RF: 0 multivitamin Tablet 1 tab PO DAILY RF: 0 calcium carbonate [Calcium 500] 500 mg calcium (1,250 mg) Tablet 1,000 mg PO DAILY RF: 0 cranberry 450 mg Tablet 450 mg PO DAILY RF: 0 ascorbic acid (vitamin C) [Vitamin C] 1,000 mg Tablet Extended Release 1,000 mg PO DAILY RF: 0 garlic 1,000 mg Capsule 1,000 mg PO DAILY RF: 0 glucosamine [id number] 750-375-400 mg Tablet 2 tab PO DAILY RF: 0 cholecalciferol (vitamin D3) [Vitamin D3] 125 mcg (5,000 unit) Tablet 125 mcg PO DAILY RF: 0 melatonin 10 mg Tablet 10 mg PO HS RF: 0 diphenhydramine-acetaminophen [Tylenol PM Extra Strength] 25-500 mg Tablet 2 tab PO HS PRN (Reason: Sleep) RF: 0 Discharge Orders: Discharge Order (Routine); Ordered 01/16/20 Ordered By: Flako Presley Admission Data Admit Date/Time: 01/13/20 13:48 Attending Provider: Flako Presley Admit Provider: Flako Presley Primary Care Provider: Chitra Mcgee Other Providers: June Schulz
== END 2020-01-16 13:24 | disposition home or self-care (01) | DRG 455 ==
LOC: ASU 06:31 → 3E 13:48